=== PATIENT | female | born 1950 | race Caucasian/White ===

== ENCOUNTER → 2020-03-29 | Outpatient (CLI) | payer MEDICARE ==
--- NOTE | 2020-03-29 22:19 | CT ---
EXAMINATION TYPE: CT sinus w con DATE OF EXAM: 03/29/2020 COMPARISON: None. HISTORY: Dyspnea. 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 CT DLP: 514.10 mGycm Automated exposure control for dose reduction was used. CONTRAST: CT scan of the sinuses is performed with IV Contrast, patient injected with 50 mL of Isovue 300. TECHNIQUE: CT scan of the sinuses is performed with IV contrast, axial images are obtained, coronal r eformatted images are also reviewed. FINDINGS: The paranasal sinuses including the frontal, ethmoid, sphenoid, and maxillary sinuses bila terally are well-aerated without abnormal opacification. The ostiomeatal complex is patent bilateral ly on coronal image 16. Visualized portion of mastoid air cells show no abnormal opacification. The globes are intact bilate rally. Visualized brain parenchyma unremarkable. No suspicious enhancement is seen. IMPRESSION: The sinuses are clear and the ostiomeatal complex is patent bilaterally.
--- NOTE | 2020-03-29 22:21 | CT ---
EXAMINATION TYPE: CT chest w con DATE OF EXAM: 03/29/2020 COMPARISON: Chest x-ray 6 days ago HISTORY: Dyspnea. 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 CT DLP: 171.60 mGycm. Automated Exposure Control for Dose Reduction was Utilized. TECHNIQUE: CT scan of the thorax is performed following with IV Contrast, patient injected with 50 m L of Isovue 300. FINDINGS: LUNGS: Mild to moderate biapical pleural/parenchymal scarring. Mild medial left basilar linear scarri ng and/or atelectasis. No suspicious focal consolidation or groundglass opacity. No pleural effusion or pneumothorax is seen bilaterally. Tracheobronchial tree is patent. MEDIASTINUM: There are no greater than 1 cm hilar or mediastinal lymph nodes. No cardiomegaly or pe ricardial effusion is seen. Enlarged right and left pulmonary arteries, CT findings consistent with underlying pulmonary artery hypertension. Thyroid gland is small in size or atrophic. OTHER: Small sized hiatal hernia. Cholecystectomy clips. Underlying scoliosis. Exaggerated thoracic k yphosis. IMPRESSION: Mild Chronic parenchymal changes without acute pulmonary process. Underlying pulmonary ar minda hypertension is present.
== END | disposition home or self-care (01) ==
LOC: RADCTMAIN 15:11
PROVIDERS: ATTEND Internal Medicine Critical Care Medicine
DX: J98.4 Other disorders of lung (principal); I27.21 Secondary pulmonary arterial hypertension; R06.09 Other forms of dyspnea
CPT/HCPCS: 82565; 84520; 71260; 36415; 70487; Q9967

== ENCOUNTER → 2020-05-24 | Outpatient (CLI) | payer MEDICARE ==
[2020-05-25 03:46] LABS: African American GFR (CKD) 65.6 (60.0-200.0); Anion Gap 11.5 mmol/L (4.00-12.00); Calcium 9.8 mg/dL (8.7-10.3); Carbon Dioxide 24.5 mmol/L (21.6-31.8); Non-African American GFR(CKD) 56.6 (60.0-200.0); Potassium 4.5 mmol/L (3.5-5.5)
== END | disposition home or self-care (01) ==
LOC: LABWHC1 12:21
PROVIDERS: ATTEND Internal Medicine Critical Care Medicine
DX: N17.9 Acute kidney failure, unspecified (principal)
CPT/HCPCS: 36415; 80048

== ENCOUNTER → 2020-06-05 | Outpatient (CLI) | payer MEDICARE ==
--- NOTE | 2020-06-06 10:56 | ECHOF ---
Referral Reason:R06.09 dyspnea MEASUREMENTS -------- HEIGHT: 167.6 cm WEIGHT: 68.9 kg BP: RVIDd: 3.5 cm (< 3.3) IVSd: 1.1 cm (0.6 - 1.1) LVIDd: 3.6 cm (3.9 - 5.3) LVPWd: 1.0 cm (0.6 - 1.1) IVSs: 1.5 cm LVIDs: 2.4 cm LVPWs: 1.6 cm LAESV Index (A-L): 26.46 ml/m Ao Diam: 2.9 cm (2.0 - 3.7) AV Cusp: 1.9 cm (1.5 - 2.6) MV EXCURSION: 20.022 mm (> 18.000) MV EF SLOPE: 59 mm/s (70 - 150) EPSS: 0.5 cm MV E Aaron: 0.92 m/s MV DecT: 160 ms MV A Aaron: 1.28 m/s MV E/A Ratio: 0.72 AR PHT: 454 ms RAP: 5.00 mmHg RVSP: 33.54 mmHg FINDINGS -------- Sinus rhythm. This was a technically adequate study. The left ventricular size is normal. There is mild concentric left ventricular hypertrophy. Overa ll left ventricular systolic function is normal with, an EF between 55 - 60 %. The diastolic fillin g pattern is normal for the age of the patient 14.83. The right ventricle is mildly enlarged. Normal LA size by volume 22+/-6 ml/m2. The right atrial size is normal. Interatrial and interventricular septum intact. The aortic valve is trileaflet and appears structurally normal. There is mild aortic regurgitation. There is no evidence of aortic stenosis. Mild mitral regurgitation is present. Mild tricuspid regurgitation present. There is mild pulmonary hypertension. The right ventricular systolic pressure, as measured by Doppler, is 33.54mmHg. There is no pulmonic regurgitation present. The aortic root size is normal. IVC Not well visulized. There is no pericardial effusion. CONCLUSIONS -------- 1. Sinus rhythm. 2. This was a technically adequate study. 3. The left ventricular size is normal. 4. There is mild concentric left ventricular hypertrophy. 5. Overall left ventricular systolic function is normal with, an EF between 55 - 60 %. 6. The diastolic filling pattern is normal for the age of the patient 14.83 7. The right ventricle is mildly enlarged. 8. There is mild aortic regurgitation. 9. Mild mitral regurgitation is present. 10. Mild tricuspid regurgitation present. 11. There is mild pulmonary hypertension. 12. The right ventricular systolic pressure, as measured by Doppler, is 33.54mmHg. MARKER MACHINE ATTENDANT: Radha Chiang RDCS
== END | disposition home or self-care (01) ==
LOC: RADECHMAIN 14:58
PROVIDERS: ATTEND Internal Medicine Critical Care Medicine
DX: I08.3 Combined rheumatic disorders of mitral, aortic and tricuspid valves (principal); I27.20 Pulmonary hypertension, unspecified
CPT/HCPCS: 93306

== ENCOUNTER 2021-02-18 14:27 | Emergency (ER) | payer MEDICARE ==
[2021-02-18 15:24] VITALS: BP 159/87; PULSE 97; RESP 20; TEMP 98.5
--- NOTE | 2021-02-18 15:53 | ED ---
General Adult HPI - General Chief complaint: Recheck/Abnormal Lab/Rx Stated complaint: Covid+/antibodies Time Seen by Provider: 02/18/21 15:25 Source: patient, RN notes reviewed, old records reviewed Mode of arrival: ambulatory Limitations: no limitations - History of Present Illness Initial comments: This is a 71-year-old female presents to the emergency department stating that she was diagnosed with COVID yesterday. Patient states she had her first symptoms on . Patient states that she was recommended to come to the emergency department for a infusion of monoclonal antibodies. Patient states she is somewhat short of breath occasionally. Patient denies any chest pain or palpitations. Patient states she did not get any of the vaccinations. - Related Data Allergies Allergy/AdvReac Type Severity Reaction Status Date / Time bee pollen Allergy Anaphylaxis Verified 02/18/21 15:21 ciprofloxacin [From Cipro] Allergy Dyspnea Verified 02/18/21 15:19 diclofenac [From Arthrotec] Allergy Unknown Verified 02/18/21 15:19 diphenhydramine Allergy Rapid Verified 02/18/21 15:19 [From Benadryl] Heart Rate ezetimibe [From Zetia] Allergy Dyspnea Verified 02/18/21 15:19 Iodinated Contrast Media Allergy Rash/Hives Verified 02/18/21 15:21 levofloxacin [From Levaquin] Allergy Rapid Verified 02/18/21 15:19 Heart Rate misoprostol [From Arthrotec] Allergy Unknown Verified 02/18/21 15:19 naproxen [From Aleve] Allergy Anaphylaxis Verified 02/18/21 15:19 niacin Allergy Anaphylaxis Verified 02/18/21 15:19 prednisone Allergy Rapid Verified 02/18/21 15:19 Heart Rate acetaminophen AdvReac Unknown Verified 02/18/21 15:19 [From Darvocet-N] atorvastatin [From Lipitor] AdvReac Nausea & Verified 02/18/21 15:21 Vomiting & Diarrhea cimetidine [From Tagamet] AdvReac Unknown Verified 02/18/21 15:21 codeine AdvReac Abdominal Verified 02/18/21 15:19 Pain esomeprazole [From Nexium] AdvReac Abdominal Verified 02/18/21 15:21 Pain omeprazole [From Prilosec] AdvReac Unknown Verified 02/18/21 15:21 pramipexole [From Mirapex] AdvReac Diarrhea Verified 02/18/21 15:21 pravastatin AdvReac Nausea & Verified 02/18/21 15:21 Vomiting & Diarrhea propoxyphene AdvReac Unknown Verified 02/18/21 15:19 [From Darvocet-N] simvastatin AdvReac Nausea & Verified 02/18/21 15:21 Vomiting & Diarrhea Review of Systems ROS Statement: Those systems with pertinent positive or pertinent negative responses have been documented in the HPI. ROS Other: All systems not noted in ROS Statement are negative. Past Medical History Past Medical History: Hyperlipidemia History of Any Multi-Drug Resistant Organisms: None Reported Past Surgical History: Appendectomy, Cholecystectomy, Hysterectomy, Tonsillectomy Past Psychological History: No Psychological Hx Reported Smoking Status: Never smoker Past Alcohol Use History: Occasional Past Drug Use History: None Reported General Exam - General Exam Comments Initial Comments: GENERAL: Patient is well-developed and well-nourished. Patient is nontoxic and well- hydrated and is in mild distress. ENT: Neck is soft and supple. No significant lymphadenopathy is noted. Oropharynx is clear. Moist mucous membranes. Neck has full range of motion without eliciting any pain. EYES: The sclera were anicteric and conjunctiva were pink and moist. Extraocular movements were intact and pupils were equal round and reactive to light. Eyelids were unremarkable. PULMONARY: Unlabored respirations. Good breath sounds bilaterally. No audible rales rhonchi or wheezing was noted. CARDIOVASCULAR: There is a regular rate and rhythm without any murmurs gallops or rubs. ABDOMEN: Soft and nontender with normal bowel sounds. SKIN: Skin is clear with no lesions or rashes and otherwise unremarkable. NEUROLOGIC: Patient is alert and oriented x3. Cranial nerves II through XII are grossly intact. Motor and sensory are also intact. Normal speech, volume and content. Symmetrical smile. MUSCULOSKELETAL: Normal extremities with adequate strength and full range of motion. LYMPHATICS: No significant lymphadenopathy is noted PSYCHIATRIC: Normal psychiatric evaluation. Limitations: no limitations Course Vital Signs 02/18/21 15:22 Temperature 98.5 F Pulse Rate 97 Respiratory 20 Rate Blood Pressure 159/87 O2 Sat by Pulse 97 Oximetry Medical Decision Making - Medical Decision Making Patient received monoclonal antibodies. Chest x-ray shows no acute abnormality. Disposition Clinical Impression: COVID Disposition: HOME SELF-CARE Condition: Good Instructions (If sedation given, give patient instructions): Coronavirus Disease 2019 (COVID-19) Is patient prescribed a controlled substance at d/c from ED?: No Referrals: Daria Calle MD [Primary Care Provider] - 1-2 days Time of Disposition: 17:04
[2021-02-18] MEDS ORDERED: SODIUM CHLORIDE 0.9% 50 ML IVPB ONE (16:00)
[2021-02-18] MEDS ORDERED: SOTROVIMAB (EUA) 500 MG in SODIUM CHLORIDE 0.9% 100 ML IVPB ONE (16:15)
--- NOTE | 2021-02-18 16:22 | XR ---
EXAMINATION TYPE: XR chest 1V DATE OF EXAM: 02/18/2021 COMPARISON: Chest CT March 29, 2020 HISTORY: Shortness of breath. Cough and congestion. TECHNIQUE: Single frontal view of the chest is obtained. FINDINGS: Background chronic emphysematous and pulmonary fibrotic changes bilaterally. There is no lazaro spicious new focal air space opacity, pleural effusion, or pneumothorax seen. The cardiac silhouette size is stable and within normal limits. Underlying scoliosis is redemonstrated. Cholecystectomy cli ps are again seen. IMPRESSION: Chronic changes without acute pulmonary process.
== END 2021-02-18 17:57 | disposition home or self-care (01) ==
LOC: EC 14:27
DX: U07.1 COVID-19 (principal)
CPT/HCPCS: 71045; 99284; Q0247

== ENCOUNTER 2021-10-14 14:22 | Observation (INO) | payer MEDICARE ==
[2021-10-14] MEDS ORDERED: SODIUM CHLORIDE 0.9% 500 ML 500 ML IV STA (14:41)
[2021-10-14] MEDS ORDERED: Alteplase PER PHARMACY Stroke 1 EACH MISC MISCELLANE PRN (14:41)
[2021-10-14] MEDS ORDERED: ALTEPLASE IV STA (14:44)
[2021-10-14] MEDS ORDERED: ALTEPLASE BOLUS FOR STROKE 6 MG in EMPTY SYRINGE 1 SYR IV STA (14:44)
--- NOTE | 2021-10-14 14:45 | ED ---
General Adult HPI - General Chief complaint: Neuro Symptoms/Deficit Stated complaint: posible stroke Time Seen by Provider: 10/14/21 14:35 Source: patient, RN notes reviewed, old records reviewed Mode of arrival: ambulatory Limitations: no limitations - History of Present Illness Initial comments: This a 71-year-old female presents emergency Department complaining of right- sided facial droop and inability to close her eye completely on the right side. Patient states the last time she notices something 100% normal was at 11:30 when she was putting her eye makeup on. Patient states about 1:00 she started to eat and noticed that the fluid was kind of falling out of the right side of her mouth and at that point in time she went to look at her face and noticed the facial droop so she came to the emergency department. Patient states she has a little bit of a headache behind the right eye. Patient denies any extremity weakness or numbness. Patient states yesterday for a few minutes she had some tingling in both her hands but that was short lived. Patient denies any numbness or tingling sensation today. Patient denies any weakness of any of her extremities. Patient denies any slurred speech agrees patient does not have any slurred speech. Patient denies any fever chills or cough. Patient denies any chest pain difficulty breathing or palpitations. Patient states recently she's had some issues with her sinuses. - Related Data Home Medications Medication Instructions Recorded Confirmed Albuterol Sulfate [Ventolin HFA] 1 - 2 puff INHALATION RT-Q6H PRN 02/18/21 02/18/21 Ascorbic Acid [Vitamin C] 500 mg PO DAILY 02/18/21 02/18/21 Celecoxib [CeleBREX] 100 mg PO BID 02/18/21 02/18/21 Cholecalciferol (Vitamin D3) 125 mcg PO DAILY 02/18/21 02/18/21 [Vitamin D3 (125 MCG = 5,000 IU)] Famotidine [Pepcid] 20 mg PO DAILY PRN 02/18/21 02/18/21 Levothyroxine Sodium [Synthroid] 100 mcg PO DAILY 02/18/21 02/18/21 Montelukast [Singulair] 10 mg PO HS 02/18/21 02/18/21 Triamcinolone Acetonide 1 spray EA NOSTRIL DAILY 02/18/21 02/18/21 [Triamcinolone Acetonide 0.055MG Nasal] Vitamin B Complex 1 tab PO DAILY 02/18/21 02/18/21 Allergies Allergy/AdvReac Type Severity Reaction Status Date / Time bee pollen Allergy Anaphylaxis Verified 10/14/21 14:29 ciprofloxacin [From Cipro] Allergy Dyspnea Verified 10/14/21 14:29 diclofenac [From Arthrotec] Allergy Unknown Verified 10/14/21 14:29 diphenhydramine Allergy Rapid Verified 10/14/21 14:29 [From Benadryl] Heart Rate ezetimibe [From Zetia] Allergy Dyspnea Verified 10/14/21 14:29 Iodinated Contrast Media Allergy Rash/Hives Verified 10/14/21 14:29 levofloxacin [From Levaquin] Allergy Rapid Verified 10/14/21 14:29 Heart Rate misoprostol [From Arthrotec] Allergy Unknown Verified 10/14/21 14:29 naproxen [From Aleve] Allergy Anaphylaxis Verified 10/14/21 14:29 niacin Allergy Anaphylaxis Verified 10/14/21 14:29 prednisone Allergy Rapid Verified 10/14/21 14:29 Heart Rate acetaminophen AdvReac Unknown Verified 10/14/21 14:29 [From Darvocet-N] atorvastatin [From Lipitor] AdvReac Nausea & Verified 10/14/21 14:29 Vomiting & Diarrhea cimetidine [From Tagamet] AdvReac Unknown Verified 10/14/21 14:29 codeine AdvReac Abdominal Verified 10/14/21 14:29 Pain esomeprazole [From Nexium] AdvReac Abdominal Verified 10/14/21 14:29 Pain omeprazole [From Prilosec] AdvReac Unknown Verified 10/14/21 14:29 pramipexole [From Mirapex] AdvReac Diarrhea Verified 10/14/21 14:29 pravastatin AdvReac Nausea & Verified 10/14/21 14:29 Vomiting & Diarrhea propoxyphene AdvReac Unknown Verified 10/14/21 14:29 [From Darvocet-N] simvastatin AdvReac Nausea & Verified 10/14/21 14:29 Vomiting & Diarrhea Review of Systems ROS Statement: Those systems with pertinent positive or pertinent negative responses have been documented in the HPI. ROS Other: All systems not noted in ROS Statement are negative. Past Medical History Past Medical History: CVA/TIA, Hyperlipidemia History of Any Multi-Drug Resistant Organisms: None Reported Past Surgical History: Appendectomy, Cholecystectomy, Hysterectomy, Tonsillect armand Past Psychological History: No Psychological Hx Reported Smoking Status: Never smoker Past Alcohol Use History: Occasional Past Drug Use History: None Reported General Exam - General Exam Comments Initial Comments: GENERAL: Patient is well-developed and well-nourished. Patient is nontoxic and well- hydrated and is in no acute distress. ENT: Neck is soft and supple. No significant lymphadenopathy is noted. Oropharynx is clear. Moist mucous membranes. Neck has full range of motion without eliciting any pain. EYES: The sclera were anicteric and conjunctiva were pink and moist. Extraocular movements were intact and pupils were equal round and reactive to light. Eyelids were unremarkable. PULMONARY: Unlabored respirations. Good breath sounds bilaterally. No audible rales rhonchi or wheezing was noted. CARDIOVASCULAR: There is a regular rate and rhythm without any murmurs gallops or rubs. ABDOMEN: Soft and nontender with normal bowel sounds. No palpable organomegaly was noted. There is no palpable pulsatile mass. SKIN: Skin is clear with no lesions or rashes and otherwise unremarkable. NEUROLOGIC: Patient is alert and oriented x3. Patient has facial droop on the right side of her face and has weakness with closing her eyelid on the right side. It appears at this point in time the forehead does seem to move symmetrically with the opposite side. Motor and sensory are also intact. Normal speech, volume and content. Symmetrical smile. Cerebellar exam grossly intact. Sugar MUSCULOSKELETAL: Normal extremities with adequate strength and full range of motion. LYMPHATICS: No significant lymphadenopathy is noted PSYCHIATRIC: Normal psychiatric evaluation. Limitations: no limitations Course Vital Signs 10/14/21 10/14/21 10/14/21 14:23 14:40 14:55 Temperature 97.3 F L 98.1 F 98.0 F Pulse Rate 89 83 81 Respiratory 18 18 20 Rate Blood Pressure 179/73 102/67 103/76 O2 Sat by Pulse 99 99 99 Oximetry 10/14/21 10/14/21 10/14/21 15:10 15:25 15:40 Temperature 97.9 F 98.2 F 98.1 F Pulse Rate 76 80 78 Respiratory 18 16 18 Rate Blood Pressure 166/78 176/71 173/89 O2 Sat by Pulse 100 99 100 Oximetry 10/14/21 15:55 Temperature 98.2 F Pulse Rate 81 Respiratory 18 Rate Blood Pressure 173/75 O2 Sat by Pulse 100 Oximetry Medical Decision Making - Medical Decision Making EKG shows sinus rhythm at 85 bpm AR interval 231 to us is 90 QT interval 362 QTC is 45. Patient's EKG shows no ST segment elevation or depression. I spoke with Dr. block and he agreed no TPA was indicated. Patient could not receive IV contrast until she received Solu-Medrol and Pepcid she stated she had issues with CT of the brain shows no acute abnormality. CTA shows a carotid stenosis of 50% otherwise a normal CTA. I spoke with Dr. Barth agreed to admit the patient admitted the patient remaining orders. I spoke with Dr. Garcia that he agreed to see the patient as a consult. 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 - Lab Data Result diagrams: 10/14/21 14:53 10/14/21 14:53 Lab Results 10/14/21 10/14/21 10/14/21 Range/Units 14:47 14:53 14:53 WBC 7.5 (3.8-10.6) k/uL RBC 4.90 (3.80-5.40) m/uL Hgb 15.1 (11.4-16.0) gm/dL Hct 44.5 (34.0-46.0) % MCV 90.9 (80.0-100.0) fL MCH 30.8 (25.0-35.0) pg MCHC 33.9 (31.0-37.0) g/dL RDW 13.3 (11.5-15.5) % Plt Count 315 (150-450) k/uL MPV 8.0 Neutrophils % 64 % Lymphocytes % 24 % Monocytes % 7 % Eosinophils % 2 % Basophils % 1 % Neutrophils # 4.8 (1.3-7.7) k/uL Lymphocytes # 1.8 (1.0-4.8) k/uL Monocytes # 0.5 (0-1.0) k/uL Eosinophils # 0.1 (0-0.7) k/uL Basophils # 0.1 (0-0.2) k/uL PT 10.4 (9.0-12.0) sec INR 0.9 (<1.2) APTT 24.3 (22.0-30.0) sec Sodium (137-145) mmol/L Potassium (3.5-5.1) mmol/L Chloride (98-107) mmol/L Carbon Dioxide (22-30) mmol/L Anion Gap mmol/L BUN (7-17) mg/dL Creatinine (0.52-1.04) mg/dL Est GFR (CKD-EPI)AfAm (>60 ml/min/1.73 sqM) Est GFR (CKD-EPI)NonAf (>60 ml/min/1.73 sqM) Glucose (74-99) mg/dL POC Glucose (mg/dL) 100 (70-110) mg/dL POC Glu Manager Brand FERNANDO David Escalante Calcium (8.4-10.2) mg/dL Total Bilirubin (0.2-1.3) mg/dL AST (14-36) U/L ALT (4-34) U/L Alkaline Phosphatase (38-126) U/L Troponin I (0.000-0.034) ng/mL Total Protein (6.3-8.2) g/dL Albumin (3.5-5.0) g/dL 10/14/21 10/14/21 Range/Units 14:53 14:53 WBC (3.8-10.6) k/uL RBC (3.80-5.40) m/uL Hgb (11.4-16.0) gm/dL Hct (34.0-46.0) % MCV (80.0-100.0) fL MCH (25.0-35.0) pg MCHC (31.0-37.0) g/dL RDW (11.5-15.5) % Plt Count (150-450) k/uL MPV Neutrophils % % Lymphocytes % % Monocytes % % Eosinophils % % Basophils % % Neutrophils # (1.3-7.7) k/uL Lymphocytes # (1.0-4.8) k/uL Monocytes # (0-1.0) k/uL Eosinophils # (0-0.7) k/uL Basophils # (0-0.2) k/uL PT (9.0-12.0) sec INR (<1.2) APTT (22.0-30.0) sec Sodium 139 (137-145) mmol/L Potassium 4.0 (3.5-5.1) mmol/L Chloride 103 (98-107) mmol/L Carbon Dioxide 25 (22-30) mmol/L Anion Gap 11 mmol/L BUN 22 H (7-17) mg/dL Creatinine 1.03 (0.52-1.04) mg/dL Est GFR (CKD-EPI)AfAm 63 (>60 ml/min/1.73 sqM) Est GFR (CKD-EPI)NonAf 55 (>60 ml/min/1.73 sqM) Glucose 102 H (74-99) mg/dL POC Glucose (mg/dL) (70-110) mg/dL POC Glu Manager Brand ID Calcium 9.8 (8.4-10.2) mg/dL Total Bilirubin 0.5 (0.2-1.3) mg/dL AST 39 H (14-36) U/L ALT 28 (4-34) U/L Alkaline Phosphatase 86 (38-126) U/L Troponin I <0.012 (0.000-0.034) ng/mL Total Protein 8.4 H (6.3-8.2) g/dL Albumin 4.7 (3.5-5.0) g/dL Disposition Clinical Impression: Cerebrovascular accident (CVA), Sepulveda's palsy Disposition: ADMITTED IP TO THIS HOSP Referrals: Daria Calle MD [Primary Care Provider] - 1-2 days Time of Disposition: 16:37
[2021-10-14] MEDS ORDERED: diphenhydrAMINE 50 MG/ML 1 ML VIAL IVP STA (14:49)
[2021-10-14] MEDS ORDERED: methylPREDNISolone SOD SUCCI 125 MG/2 ML VIAL IV STA (14:49)
[2021-10-14] MEDS ORDERED: FAMOTIDINE 20 MG/2 ML VIAL IV STA (14:49)
[2021-10-14 14:58] LABS: Glucose,Whole Blood 100 mg/dL (70-110)
[2021-10-14 15:05] LABS: Basophils # (A) 0.1 k/uL (0-0.2); Basophils % (A) 1 %; Eosinophils # (A) 0.1 k/uL (0-0.7); Eosinophils % (A) 2 %; HCT 44.5 % (34.0-46.0); HGB 15.1 gm/dL (11.4-16.0); Lymphocytes # (A) 1.8 k/uL (1.0-4.8); Lymphocytes % (A) 24 %; MCH 30.8 pg (25.0-35.0); MCHC 33.9 g/dL (31.0-37.0); MCV 90.9 fL (80.0-100.0); Monocytes # (A) 0.5 k/uL (0-1.0); Monocytes % (A) 7 %; Neutrophils # (A) 4.8 k/uL (1.3-7.7); Neutrophils % (A) 64 %; Platelet Count 315 k/uL (150-450); RDW 13.3 % (11.5-15.5); WBC 7.5 k/uL (3.8-10.6)
--- NOTE | 2021-10-14 15:11 | CT ---
EXAMINATION TYPE: CT brain wo con for TPA DATE OF EXAM: 10/14/2021 HISTORY: Neuro deficits, LT side CT DLP: 1146.6 mGycm. Automated Exposure Control for Dose Reduction was Utilized. TECHNIQUE: CT scan of the head is performed without contrast. COMPARISON: None. FINDINGS: There is no acute intracranial hemorrhage or midline shift identified. There is mild diff use ventricular and sulcal prominence consistent with diffuse age-related cerebral atrophy. Vargas-whit e matter differentiation is maintained. The globes are intact and the visualized sinuses are clear. IMPRESSION: No acute intracranial hemorrhage or midline shift.
[2021-10-14 15:14] LABS: INR 0.9 (<1.2); Partial Thromboplastin Time 24.3 sec (22.0-30.0); Prothrombin Time 10.4 sec (9.0-12.0)
[2021-10-14 15:23] LABS: Albumin 4.7 g/dL (3.5-5.0); Calcium 9.8 mg/dL (8.4-10.2); Total Bilirubin 0.5 mg/dL (0.2-1.3); Total Protein 8.4 g/dL (6.3-8.2)
[2021-10-14] MEDS ORDERED: SODIUM CHLORIDE 0.9% 50 ML MINI-BAG IV ONE (15:44)
--- NOTE | 2021-10-14 15:46 | CT ---
EXAMINATION TYPE: CT angio head neck DATE OF EXAM: 10/14/2021 HISTORY: Rt side facial droop. Acute onset neuro deficit. COMPARISON: None. CT DLP: 410.8 mGycm. Automated Exposure Control for Dose Reduction was Utilized. TECHNIQUE: CTA scan of the head and neck are performed with IV Contrast, patient injected with 65 mL of Isovue 370, axial images are obtained, coronal and sagittal reformatted images are reviewed. 3D r econstructed images are created on an independent workstation and reviewed. FINDINGS: Carotid/Vascular Structures: Satisfactory enhancement of the central pulmonary arteries . Focal moder ate to severe eccentric noncalcified plaque left common carotid artery shortly after its origin causi ng significant narrowing greater than 50% with luminal diameter narrowed to 3.5 mm versus 7.3 mm just superior to this. Normal origin right common carotid artery from right brachiocephalic artery. No si gnificant plaque or stenosis remainder of common carotid arteries bilaterally. Mild to moderate perip heral calcified plaque right carotid bulb extending into proximal internal carotid artery without sig nificant stenosis. No significant plaque left carotid bulb. Patent external carotid arteries bilatera lly without significant plaque or stenosis. No significant plaque or stenosis in the internal carotid arteries bilaterally. There is a patent small caliber anterior communicating artery. There is small caliber but patent left A1 segment. No aneurysm in the anterior circulation. No significant focal wolf nosis. There are codominant vertebral arteries filling the basilar artery. There is patent right posterior t o indicating artery. There is hypoplastic left posterior beginning artery. There is no significant fo nereida stenosis or aneurysm in the posterior circulation. Other: [id number]-[id number] biapical pleural/parenchymal scarring is seen. IMPRESSION: 1. Moderate to severe eccentric noncalcified plaque causes stenosis just over 50% just after origin o f the left common carotid artery. No significant stenosis in the remainder of the common or internal carotid arteries bilaterally. 2. No significant stenosis or aneurysm at the level of the [place]. NASCET criteria was used in interpretation of this exam?
[2021-10-14] MEDS ORDERED: ASPIRIN 325 MG TAB PO STA (16:45)
[2021-10-14] MEDS: methylPREDNISolone SOD SUCCI 125 MG/2 ML VIAL IV SCH ×2 (17:43→22:49)
[2021-10-14] MEDS ORDERED: ALBUTEROL NEBULIZED 2.5 MG/3 ML INHALATION PRN (18:36)
[2021-10-14] MEDS ORDERED: NALOXONE 0.4 MG/ML 1 ML VIAL IV PRN (18:38)
[2021-10-14] MEDS ORDERED: LACTULOSE 20 GM/30 ML CUP PO PRN (18:38)
[2021-10-14] MEDS ORDERED: LORazepam 0.5 MG TAB PO PRN (18:38)
[2021-10-14] MEDS ORDERED: CALCIUM CARBONATE 500 MG CHEWABLE PO PRN (18:38)
[2021-10-14] MEDS ORDERED: ONDANSETRON 4 MG/2 ML VIAL IVP PRN (18:38)
[2021-10-14] MEDS ORDERED: MELATONIN 3 MG TABLET PO PRN (18:38)
--- NOTE | 2021-10-14 18:52 | XR ---
EXAMINATION TYPE: XR chest 1V portable DATE OF EXAM: 10/14/2021 COMPARISON: 02/18/2021 HISTORY: Chest pain TECHNIQUE: Single view FINDINGS: There is no heart failure nor confluent pneumonic infiltrate. There is mild pulmonary hyper inflation. There are chest leads. Costophrenic angles are clear. IMPRESSION: No active cardiopulmonary disease. Normal heart. No change.
[2021-10-14 20:41] LABS: Glucose,Whole Blood 179 mg/dL (70-110)
[2021-10-14] MEDS: valACYclovir HCL 1,000 MG TABLET PO SCH (20:45)
[2021-10-14] MEDS: FLUTICASONE 50MCG/SPRAY NASAL 16GM EA NOSTRIL SCH (20:50)
[2021-10-14] MEDS: NON FORMULARY DRUG (Celecoxib 100 MG Cap) PO SCH (20:50)
[2021-10-14] MEDS ORDERED: MONTELUKAST 10 MG TAB PO SCH (21:00)
[2021-10-15 04:00] VITALS: RESP 17
[2021-10-15 05:52] LABS: Glucose,Whole Blood 149 mg/dL (70-110)
[2021-10-15] MEDS ORDERED: LEVOTHYROXINE 100 MCG TAB PO SCH (06:30)
[2021-10-15] MEDS: methylPREDNISolone SOD SUCCI 125 MG/2 ML VIAL IV SCH ×2 (06:36→12:59)
[2021-10-15] MEDS ORDERED: PYRIDOXINE 50 MG TAB PO SCH (09:00)
[2021-10-15] MEDS ORDERED: ASPIRIN 325 MG TAB PO SCH (09:00)
[2021-10-15] MEDS ORDERED: CYANOCOBALAMIN 500 MCG TAB PO SCH (09:00)
[2021-10-15] MEDS ORDERED: HEPARIN SODIUM,PORCINE/PF 5,000 UNIT/0.5 ML SYRINGE SQ SCH (09:00)
[2021-10-15] MEDS ORDERED: CHOLECALCIFEROL 125 MCG (5000 IU) TABLET PO SCH (09:00)
--- NOTE | 2021-10-15 09:07 | US ---
EXAMINATION TYPE: US carotid duplex BILAT DATE OF EXAM: 10/15/2021 COMPARISON: CTA 2021 CLINICAL HISTORY: carotid stenosis. TECHNIQUE: Carotid duplex ultrasound examination. Indirect Doppler criteria was utilized. Exam done portable FINDINGS: EXAM MEASUREMENTS: RIGHT: Peak Systolic Velocity (PSV) cm/sec ----- Right CCA: 72.1 ----- Right ICA: 81.1 ----- Right ECA: 108.8 ICA/CCA ratio: 1.1 RIGHT: End Diastole cm/sec ----- Right CCA: 11.7 ----- Right ICA: 17.7 ----- Right ECA: 7.0 LEFT: Peak Systolic Velocity (PSV) cm/sec ----- Left CCA: 79.8 ----- Left ICA: 84.5 ----- Left ECA: 141.8 ICA/CCA ratio: 1.1 LEFT: End Diastole cm/sec ----- Left CCA: 9.5 ----- Left ICA: 22.1 ----- Left ECA: 7.5 VERTEBRALS (direction of flow): Right Vertebral: Antegrade Left Vertebral: Antegrade Rhythm: Normal No significant stenosis IMPRESSION: No significant flow-limiting stenosis internal carotid arteries. Some increased velocity is noted in the left external carotid artery. Criteria for Assigning % of Stenosis / Diameter reduction (Estimation based on the indirect measurements of the internal carotid artery velocities (ICA PSV). 1. Normal (no stenosis)=ICA PSV < 125 cm/s: ratio < 2.0: ICA EDV<40 cm/s. 2. Less than 50% stenosis=ICA PSV < 125 cm/s: ratio < 2.0: ICA EDV<40 cm/s. 3. 50 to 69% stenosis=ICA PSV of 125 to 230 cm/s: ration 2.0 ? 4.0: ICA EDV 40-100 cm/s. 4. Greater than 70% stenosis to near occlusion= ICA PSV > 230 cm/s: ratio > 4.0: ICA EDV > 100 cm/s. 5. Near occlusion= ICA PSV velocities may be low or undetectable: variable ratio and ICA EDV. 6. Total occlusion=unable to detect flow.
[2021-10-15] MEDS: NON FORMULARY DRUG (Celecoxib 100 MG Cap) PO SCH (09:32)
[2021-10-15] MEDS: FLUTICASONE 50MCG/SPRAY NASAL 16GM EA NOSTRIL SCH (09:37)
[2021-10-15] MEDS: valACYclovir HCL 1,000 MG TABLET PO SCH ×2 (09:37→15:43)
--- NOTE | 2021-10-15 10:34 | P.CNNES ---
History of Present Illness Consult date: 10/15/21 Requesting physician: Gabe Bai Reason for Consult: cva vs Sepulveda's palsy History of Present Illness: A 71-year-old woman with medical history of hyperlipidemia, TIA who presented emergency department on 10/14/2021 for right facial droop and inability to close her eye. She noticed her symptoms onset yesterday around 11:30am. But around 1 PM yesterday she noticed that while eating her tongue was getting in the way and was biting her right side of mouth. Then noticed while eating thing coming out from the right side. Later she looked at her self and noticed right facial droop since could not smile on right side and was concerned about a stroke. She does notice that she's having pain behind the right eye. She denies of any focal weakness. He denies of any numbness or tingling. She denies of any slurr ing the speech appear denies of any fever. Denies of any headache. She is not on any antiplateletes. She had reactive to statins in past (different medications) and stated feel sick and can not tolerate them. Some other workup during this hospital visit consisted of: CT of the head is reported as no acute intracranial hemorrhage or midline shift. I personally reviewed the CT of the head and we were the report CT angiography of the head and neck was reported as moderate to severe concentric noncalcified plaque causing stenosis just over 50% just after the origin of left common carotid artery. No significant stenosis in the remainder of the common or internal carotid artery bilaterally. No significant stenosis or aneurysm at the level resighini of [place]. CBC with differential is unremarkable Stroke code was activated and per the ED team patient had NIH stroke scale of a 2 no IV TPA isn't indicated because the risk outweighed the benefit and was felt likely was a Sepulveda's palsy. I spoke with the ED physician regarding the case and he felt it seems that the patient has pulse palsy but he could not rule out stroke. I notified him to start the patient on steroids and the antiviral for now. Review of Systems Review of system: The 12 point system was reviewed and apparent positive and negative per HPI. Past Medical History Past Medical History: CVA/TIA, Hyperlipidemia History of Any Multi-Drug Resistant Organisms: None Reported Past Surgical History: Appendectomy, Cholecystectomy, Hysterectomy, Tonsillectomy Past Anesthesia/Blood Transfusion Reactions: No Reported Reaction Past Psychological History: No Psychological Hx Reported Smoking Status: Never smoker Past Alcohol Use History: Occasional Past Drug Use History: None Reported Medications and Allergies Home Medications Medication Instructions Recorded Confirmed Type Albuterol Sulfate [Ventolin HFA] 2 puff INHALATION RT-Q6H PRN 02/18/21 10/14/21 History Celecoxib [CeleBREX] 100 mg PO BID 02/18/21 10/14/21 History Cholecalciferol (Vitamin D3) 125 mcg PO DAILY 02/18/21 10/14/21 History [Vitamin D3 (125 MCG = 5,000 IU)] Montelukast [Singulair] 10 mg PO HS 02/18/21 10/14/21 History Cyanocobalamin [Vitamin B-12] 500 mcg PO DAILY 10/14/21 10/14/21 History Pyridoxine HCl (Vitamin B6) 100 mg PO DAILY 10/14/21 10/14/21 History [Vitamin B-6] Triamcinolone Acetonide [Nasacort] 1 spray EA NOSTRIL BID 10/14/21 10/14/21 History Aspirin 81 mg PO DAILY #30 tab 10/15/21 Rx Levothyroxine Sodium [Synthroid] 37.5 mcg PO DAILY #30 tab 10/15/21 Rx predniSONE 10 mg PO DAILY #30 tab 10/15/21 Rx valACYclovir HCL [Valtrex] 1,000 mg PO TID #21 tab 10/15/21 Rx Allergies Allergy/AdvReac Type Severity Reaction Status Date / Time bee pollen Allergy Anaphylaxis Verified 10/14/21 17:35 ciprofloxacin [From Cipro] Allergy Dyspnea Verified 10/14/21 17:35 diclofenac [From Arthrotec] Allergy Unknown Verified 10/14/21 17:35 diphenhydramine Allergy Rapid Verified 10/14/21 17:35 [From Benadryl] Heart Rate ezetimibe [From Zetia] Allergy Dyspnea Verified 10/14/21 17:35 Iodinated Contrast Media Allergy Rash/Hives Verified 10/14/21 17:35 levofloxacin [From Levaquin] Allergy Rapid Verified 10/14/21 17:35 Heart Rate naproxen [From Aleve] Allergy Anaphylaxis Verified 10/14/21 17:35 niacin Allergy Anaphylaxis Verified 10/14/21 17:35 prednisone Allergy Rapid Verified 10/14/21 17:35 Heart Rate acetaminophen AdvReac Unknown Verified 10/14/21 17:35 [From Darvocet-N] atorvastatin [From Lipitor] AdvReac Nausea & Verified 10/14/21 17:35 Vomiting & Diarrhea cimetidine [From Tagamet] AdvReac Abdominal Verified 10/14/21 17:35 Pain codeine AdvReac Abdominal Verified 10/14/21 17:35 Pain esomeprazole [From Nexium] AdvReac Abdominal Verified 10/14/21 17:35 Pain misoprostol [From Arthrotec] AdvReac numbness, Verified 10/14/21 17:35 weakness omeprazole [From Prilosec] AdvReac felt Verified 10/14/21 17:35 strange, confusion pramipexole [From Mirapex] AdvReac Diarrhea, Verified 10/14/21 17:35 shakiness pravastatin AdvReac weakness, Verified 10/14/21 17:35 abdominal pain, numbness propoxyphene AdvReac Unknown Verified 10/14/21 17:35 [From Darvocet-N] simvastatin AdvReac Nausea & Verified 10/14/21 17:35 Vomiting & Diarrhea Physical Examination - Vital Signs Vital Signs: Vital Signs Temp Pulse Pulse Resp BP BP Pulse Ox 10/15/21 03:58 97.4 F L 82 17 146/70 94 L 10/15/21 02:00 18 10/14/21 23:27 98.0 F 90 18 178/84 96 10/14/21 20:00 98.6 F 80 17 170/74 97 10/14/21 18:20 98.4 F 94 16 189/84 97 10/14/21 17:40 86 18 190/82 97 10/14/21 17:12 76 18 98 10/14/21 17:00 79 18 154/80 96 10/14/21 15:55 98.2 F 81 18 173/75 100 10/14/21 15:40 98.1 F 78 18 173/89 100 10/14/21 15:25 98.2 F 80 16 176/71 99 10/14/21 15:10 97.9 F 76 18 166/78 100 10/14/21 14:55 98.0 F 81 20 103/76 99 10/14/21 14:40 98.1 F 83 18 102/67 99 10/14/21 14:23 97.3 F L 89 18 179/73 99 Intake and Output 10/14/21 10/15/21 10/15/21 22:59 06:59 14:59 Other: Voiding Method Toilet Toilet # Voids 1 Weight 69.853 kg GENERAL: The patient is lying in bed and is not in acute distress. CHEST: The heart rate is regular rate rhythm. No murmurs to auscultation. LUNG: Clear to auscultation bilaterally no wheezing noted throughout. Not labored breathing. ABDOMEN/GI: Bowel sounds present in all 4 quadrants. No tenderness to palpation throughout. NEUROLOGICAL: Higher mental function: The patient is awake, alert, oriented to self, place and time. Patient is following commands. No aphasia and no neglect. Cranial nerves: The pupils are round, equal and reactive to light and accommodation. Visual root are full to confrontation throughout. Extraocular movement is intact no nystagmus is noted. Facial sensation is normal to touch throughout. The facial strength is right peripheral weakness. Hearing is normal bilaterally to hand rub. Tongue is midline and moved [id number] without any difficulty. No dysarthria is noted. Shoulder shrug is normal bilaterally. Motor: Gait is normal. The strength is 5 over 5 throughout. Normal tone and bulk. Cerebellum: Normal finger to nose heel to smiley bilaterally. Sensation: Sensation is normal to touch throughout. Reflexes (right/left): 2+ throughout. Plantars are mute bilaterally. Results - Laboratory Findings CBC and BMP: 10/14/21 14:53 10/15/21 12:09 Abnormal Lab Findings: Abnormal Labs 10/14/21 10/14/21 10/15/21 14:53 20:36 05:45 BUN 22 H Glucose 102 H POC Glucose (mg/dL) 179 H 149 H AST 39 H Total Protein 8.4 H Assessment and Plan Assessment: Right peripheral facial weakness seems like Sepulveda's palsy. Possibly due to viral induced. Rule out stroke. Plan: I ordered MRI of the brain with and without on 10/14/2021 and pending. Patient refused MRI since stated cannot tolerate it event with sedatives. Therefore will discontinue the order. Patient was started on aspirin 325 daily by the ED team answer be resumed. She does not tolerate statins in past. Currently the patient is on Solu-Medrol 60 mg IV every 6 hours as well as bowel acyclovir thousand milligrams 1 tablet 3 times a day for concern of Sepulveda's palsy. For discharge: Recommend Prednisone 70mg/day for 5 days followed by 10mg less each day until off. Also Valcyclovir 1gm tid for additional 6 days. Recommend eye patch and clear eye drop to avoid corneal ulceration. Lipid panel is ordered and is pending. Ordered carotid duplex, Lymes disease, TSH, and HbA1c. PT OT and CERTIFIED LEGAL INVESTIGATOR are consulted Continue neuro checks I ordered TSH, free T4, hemoglobin A1c. We'll defer glucose management to the primary team For DVT prophylaxis I started the patient on subcu heparin 5000 units every 12 hours The plan is discussed with patient and her nurse. Thank you for consultation. Raj Mata M.D. Neuro-hospitalist Time with Patient: Greater than 30
[2021-10-15 11:48] LABS: Glucose,Whole Blood 125 mg/dL (70-110)
[2021-10-15 12:37] LABS: Calcium 9.6 mg/dL (8.4-10.2); Potassium 4.3 mmol/L (3.5-5.1)
--- NOTE | 2021-10-15 13:42 | US ---
EXAMINATION TYPE: US kidneys/renal and bladder DATE OF EXAM: 10/15/2021 COMPARISON: NONE CLINICAL HISTORY: assess for ckd. Exam done portable EXAM MEASUREMENTS: Right Kidney: 9.8 x 3.1 x 3.4 cm Left Kidney: 10.6 x 3.7 x 4.4 cm Right Kidney: No hydronephrosis or masses seen Left Kidney: No hydronephrosis or masses seen Bladder: wnl Bilateral Jets seen: no IMPRESSION: Unremarkable renal ultrasound.
[2021-10-15 14:03] LABS: T4, Free (Free Thyroxine) 2.39 ng/dL (0.78-2.19)
[2021-10-15 14:52] LABS: LDL Cholesterol,Calculated 198.2 mg/dL (0.0-131.0)
--- NOTE | 2021-10-15 15:49 | P.HPIM ---
History of Present Illness H&P Date: 10/15/21 Chief Complaint: Facial weakness This is a pleasant 71-year-old patient who follows with Dr. Daria Calle. Chronic stable medical conditions include ALLERGIES, hypothyroid, osteoarthritis, asthma,. Currently was being treated for acute sinusitis. Was on doxycycline. Yesterday all of a sudden patient notice numbness on the right side of the face. Also consider better found in the mouth was being pulled to the left. Was unable to close her right eye. No fever no chills. No change in vision. No change in taste. No trouble swallowing. In the ER and there was concern about a central cause as opposed to Sepulveda's palsy. Hence patient is admitted with neurology consultation. Patient's at the bedside. No change in symptoms. MRI was ordered by neurology but patient did not want it because cannot tolerated in spite of sedatives Review of systems: GEN.: None EYES: As above HEENT: None NECK: None RESPIRATORY: None CARDIOVASCULAR: None GASTROINTESTINAL: Reflux GENITOURINARY: Urinary incontinence MUSCULOSKELETAL: Joint pains LYMPHATICS: None HEMATOLOGICAL: None PSYCHIATRY: None NEUROLOGICAL: As above. Past medical history to include: ALLERGIES, hypothyroid, prostatitis, asthma Social history: . No smoking. Alcohol occasionally. Family history: Reviewed, noncontributory to presentation Physical examination: VITAL SIGNS: 97.4, 90, 17, 165/76, 96% on room air GENERAL: Average built, sitting up, comfortable. EYES: Pupils equal. Conjunctiva normal. HEENT: External appearance of nose and ears normal, oral cavity grossly normal. NECK: JVD not raised; masses not palpable. HEART: First and second heart sounds are normal; no edema. LUNGS: Respiratory rate normal; clear to auscultation. ABDOMEN: Soft, nontender, liver spleen not palpable, no masses palpable. PSYCH: Alert and oriented x3; mood and affect normal. MUSCULOSKELETAL:No Clubbing/cyanosis;muscles-grossly intact. OA NEUROLOGICAL: Mouth pulled to the left. Decreased sensation right face. Unable to close right eye. Against resistance. Upon looking up no creases and forehead on the right side, power and sensation grossly intact. LYMPHATICS: No lymph nodes palpable in the axilla and neck INVESTIGATIONS, reviewed in the clinical context: White count 7.5 hemoglobin 15.14 creatinine 1.03 Troponin I less than 0.012 LDL 198 TSH 0.2-4, free T4 2 0.39 EKG tracing personally reviewed by me-no sinus rhythm. Rate 85 Chest x-ray film personally reviewed by me-some hyperinflation CT brain without contrast: Unremarkable CT angiogram: Moderate to severe eccentric noncalcified plaque still suggest over 50%. Left CCA. No other significant stenosis. 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 IV acyclovir. Patient has declined MRI dated neurology was consulted. -Hyperlipidemia Patient unable to tolerate statins. To follow-up with her PCP. -Chronic kidney disease stage II. We will repeat BMP today. As patient had a dye test yesterday. Also renal ultrasound -Chronic ALLERGIES Singulair -Primary osteoarthritis multiple joints bilateral . Tylenol as needed. On Celebrex -GERD PPI -Chronic urinary stress incontinence -Mild persistent asthma Albuterol when necessary Neurology was consulted. Patient does not want MRI. Cannot tolerate statins. Ultrasound. Repeat BMP. Acyclovir. Steroids. Discussed with the patient has been. Facial exercises for Sepulveda's palsy discussed. Past Medical History Past Medical History: CVA/TIA, Hyperlipidemia History of Any Multi-Drug Resistant Organisms: None Reported Past Surgical History: Appendectomy, Cholecystectomy, Hysterectomy, Tonsillectomy Past Anesthesia/Blood Transfusion Reactions: No Reported Reaction Past Psychological History: No Psychological Hx Reported Smoking Status: Never smoker Past Alcohol Use History: Occasional Past Drug Use History: None Reported Medications and Allergies Home Medications Medication Instructions Recorded Confirmed Type Albuterol Sulfate [Ventolin HFA] 2 puff INHALATION RT-Q6H PRN 02/18/21 10/14/21 History Celecoxib [CeleBREX] 100 mg PO BID 02/18/21 10/14/21 History Cholecalciferol (Vitamin D3) 125 mcg PO DAILY 02/18/21 10/14/21 History [Vitamin D3 (125 MCG = 5,000 IU)] Levothyroxine Sodium [Synthroid] 100 mcg PO DAILY 02/18/21 10/14/21 History Montelukast [Singulair] 10 mg PO HS 02/18/21 10/14/21 History Cyanocobalamin [Vitamin B-12] 500 mcg PO DAILY 10/14/21 10/14/21 History Doxycycline Hyclate 100 mg PO BID 10/14/21 10/14/21 History Pyridoxine HCl (Vitamin B6) 100 mg PO DAILY 10/14/21 10/14/21 History [Vitamin B-6] Triamcinolone Acetonide [Nasacort] 1 spray EA NOSTRIL BID 10/14/21 10/14/21 History Allergies Allergy/AdvReac Type Severity Reaction Status Date / Time bee pollen Allergy Anaphylaxis Verified 10/14/21 17:35 ciprofloxacin [From Cipro] Allergy Dyspnea Verified 10/14/21 17:35 diclofenac [From Arthrotec] Allergy Unknown Verified 10/14/21 17:35 diphenhydramine Allergy Rapid Verified 10/14/21 17:35 [From Benadryl] Heart Rate ezetimibe [From Zetia] Allergy Dyspnea Verified 10/14/21 17:35 Iodinated Contrast Media Allergy Rash/Hives Verified 10/14/21 17:35 levofloxacin [From Levaquin] Allergy Rapid Verified 10/14/21 17:35 Heart Rate naproxen [From Aleve] Allergy Anaphylaxis Verified 10/14/21 17:35 niacin Allergy Anaphylaxis Verified 10/14/21 17:35 prednisone Allergy Rapid Verified 10/14/21 17:35 Heart Rate acetaminophen AdvReac Unknown Verified 10/14/21 17:35 [From Darvocet-N] atorvastatin [From Lipitor] AdvReac Nausea & Verified 10/14/21 17:35 Vomiting & Diarrhea cimetidine [From Tagamet] AdvReac Abdominal Verified 10/14/21 17:35 Pain codeine AdvReac Abdominal Verified 10/14/21 17:35 Pain esomeprazole [From Nexium] AdvReac Abdominal Verified 10/14/21 17:35 Pain misoprostol [From Arthrotec] AdvReac numbness, Verified 10/14/21 17:35 weakness omeprazole [From Prilosec] AdvReac felt Verified 10/14/21 17:35 strange, confusion pramipexole [From Mirapex] AdvReac Diarrhea, Verified 10/14/21 17:35 shakiness pravastatin AdvReac weakness, Verified 10/14/21 17:35 abdominal pain, numbness propoxyphene AdvReac Unknown Verified 10/14/21 17:35 [From Darvocet-N] simvastatin AdvReac Nausea & Verified 10/14/21 17:35 Vomiting & Diarrhea Physical Exam Vitals: Vital Signs Temp Pulse Pulse Resp BP BP Pulse Ox 10/15/21 08:00 97.4 F L 90 17 165/76 96 10/15/21 03:58 97.4 F L 82 17 146/70 94 L 10/15/21 02:00 18 10/14/21 23:27 98.0 F 90 18 178/84 96 10/14/21 20:00 98.6 F 80 17 170/74 97 10/14/21 18:20 98.4 F 94 16 189/84 97 10/14/21 17:40 86 18 190/82 97 10/14/21 17:12 76 18 98 10/14/21 17:00 79 18 154/80 96 10/14/21 15:55 98.2 F 81 18 173/75 100 10/14/21 15:40 98.1 F 78 18 173/89 100 10/14/21 15:25 98.2 F 80 16 176/71 99 10/14/21 15:10 97.9 F 76 18 166/78 100 10/14/21 14:55 98.0 F 81 20 103/76 99 10/14/21 14:40 98.1 F 83 18 102/67 99 10/14/21 14:23 97.3 F L 89 18 179/73 99 Intake and Output 10/14/21 10/15/21 10/15/21 22:59 06:59 14:59 Intake Total 240 Balance 240 Intake: Oral 240 Other: Voiding Method Toilet Toilet # Voids 1 Weight 69.853 kg Results CBC & Chem 7: 10/14/21 14:53 10/15/21 12:09 Labs: Abnormal Lab Results - Last 24 Hours (Table) 10/14/21 10/14/21 10/15/21 Range/Units 14:53 20:36 05:45 BUN 22 H (7-17) mg/dL Glucose 102 H (74-99) mg/dL POC Glucose (mg/dL) 179 H 149 H (70-110) mg/dL AST 39 H (14-36) U/L Total Protein 8.4 H (6.3-8.2) g/dL Thrombosis Risk Factor Assmnt - Choose All That Apply Any of the Below Risk Factors Present?: No Other Risk Factors: Yes Each Risk Factor Represents 2 Points: Age 61-74 years Other congenital or acquired thrombophilia - If yes, enter type in comment: No Thrombosis Risk Factor Assessment Total Risk Factor Score: 2 Thrombosis Risk Factor Assessment Level: Low Risk
[2021-10-15 15:52] LABS: Appearance,Urine Clear (Clear); Bilirubin,Urine Negative (Negative); Blood,Urine Trace (Negative); Color,Urine Light Yellow; Glucose,Urine (UA) Negative (Negative); Ketones,Urine Negative (Negative); Leukocyte Esterase,Urine Negative (Negative); Mucus,Urine Rare /hpf; Nitrite,Urine Negative (Negative); Protein,Urine Negative (Negative); RBC,Urine 1 /hpf (0-5); Specific Gravity,Urine 1.013 (1.001-1.035); Squamous Epithelial Cell,Urine 1 /hpf (0-4); Urobilinogen,Urine <2.0 mg/dL (<2.0); WBC,Urine 1 /hpf (0-5)
[2021-10-15 18:35] VITALS: BP 145/72; PULSE 85; TEMP 98.1
--- NOTE | 2021-10-15 19:13 | P.DS ---
Providers Date of admission: 10/14/21 16:39 Expected date of discharge: 10/15/21 Attending physician: Jeremy Barth Consults: 10/14/21 16:39 Consult Physician Routine Consulting Provider: Raj Mata Consult Reason/Comments: CVA versus Sepulveda's palsy Do you want consulting provider notified?: Yes Primary care physician: Daria Calle [place] Course: Chief Complaint: Facial weakness This is a pleasant 71-year-old patient who follows with Dr. Daria Calle. Chronic stable medical conditions include ALLERGIES, hypothyroid, osteoarthritis, asthma,. Currently was being treated for acute sinusitis. Was on doxycycline. Yesterday all of a sudden patient notice numbness on the right side of the face. Also consider better found in the mouth was being pulled to the left. Was unable to close her right eye. No fever no chills. No change in vision. No change in taste. No trouble swallowing. In the ER and there was concern about a central cause as opposed to Sepulveda's palsy. Hence patient is admitted with neurology consultation. Patient's at the bedside. No change in symptoms. MRI was ordered by neurology but patient did not want it because cannot tolerated in spite of sedatives Patient is repeat BMP was done today. Creatinine 0.87. No CAD. Because of elevated LDL baby aspirin being added. Review of systems: GEN.: None EYES: As above HEENT: None NECK: None RESPIRATORY: None CARDIOVASCULAR: None GASTROINTESTINAL: Reflux GENITOURINARY: Urinary incontinence MUSCULOSKELETAL: Joint pains LYMPHATICS: None HEMATOLOGICAL: None PSYCHIATRY: None NEUROLOGICAL: As above. Past medical history to include: ALLERGIES, hypothyroid, prostatitis, asthma Social history: . No smoking. Alcohol occasionally. Family history: Reviewed, noncontributory to presentation Physical examination: VITAL SIGNS: 97.4, 90, 17, 165/76, 96% on room air GENERAL: Average built, sitting up, comfortable. EYES: Pupils equal. Conjunctiva normal. HEENT: External appearance of nose and ears normal, oral cavity grossly normal. NECK: JVD not raised; masses not palpable. HEART: First and second heart sounds are normal; no edema. LUNGS: Respiratory rate normal; clear to auscultation. ABDOMEN: Soft, nontender, liver spleen not palpable, no masses palpable. PSYCH: Alert and oriented x3; mood and affect normal. MUSCULOSKELETAL:No Clubbing/cyanosis;muscles-grossly intact. OA NEUROLOGICAL: Mouth pulled to the left. Decreased sensation right face. Unable to close right eye. Against resistance. Upon looking up no creases and forehead on the right side, power and sensation grossly intact. LYMPHATICS: No lymph nodes palpable in the axilla and neck INVESTIGATIONS, reviewed in the clinical context: October 15: Creatinine 0.87 Renal ultrasound unremarkable UA: Unremarkable White count 7.5 hemoglobin 15.14 creatinine 1.03 Troponin I less than 0.012 LDL 198 TSH 0.2-4, free T4 2 0.39 EKG tracing personally reviewed by me-no sinus rhythm. Rate 85 Chest x-ray film personally reviewed by me-some hyperinflation CT brain without contrast: Unremarkable CT angiogram: Moderate to severe eccentric noncalcified plaque still suggest over 50%. Left CCA. No other significant stenosis. 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 IV acyclovir. Patient has declined MRI dated neurology was consulted. Discharged on acyclovir and prednisone. Facial exercises. -Hyperlipidemia Patient unable to tolerate statins. To follow-up with her PCP. -Patient does not have chronic kidney disease. Normal creatinine. Normal renal ultrasound. No protein in the urine. -Chronic ALLERGIES Singulair -Primary osteoarthritis multiple joints bilateral . Tylenol as needed. On Celebrex -GERD PPI -Chronic urinary stress incontinence -Mild persistent asthma Albuterol when necessary Disposition: Home Plan - Discharge Summary Discharge Rx Participant: Yes New Discharge Prescriptions: New valACYclovir HCL [Valtrex] 1,000 mg PO TID #21 tab Aspirin 81 mg PO DAILY #30 tab predniSONE 10 mg PO DAILY #30 tab Levothyroxine Sodium [Synthroid] 37.5 mcg PO DAILY #30 tab Continue Montelukast [Singulair] 10 mg PO HS Cholecalciferol (Vitamin D3) [Vitamin D3 (125 MCG = 5,000 IU)] 125 mcg PO DAILY Albuterol Sulfate [Ventolin HFA] 2 puff INHALATION RT-Q6H PRN PRN Reason: Shortness Of Breath Triamcinolone Acetonide [Nasacort] 1 spray EA NOSTRIL BID Cyanocobalamin [Vitamin B-12] 500 mcg PO DAILY Celecoxib [CeleBREX] 100 mg PO BID Pyridoxine HCl (Vitamin B6) [Vitamin B-6] 100 mg PO DAILY Discontinued Doxycycline Hyclate 100 mg PO BID Levothyroxine Sodium [Synthroid] 100 mcg PO DAILY Discharge Medication List Albuterol Sulfate [Ventolin HFA] 2 puff INHALATION RT-Q6H PRN 02/18/21 [History] Celecoxib [CeleBREX] 100 mg PO BID 02/18/21 [History] Cholecalciferol (Vitamin D3) [Vitamin D3 (125 MCG = 5,000 IU)] 125 mcg PO DAILY 02/18/21 [History] Montelukast [Singulair] 10 mg PO HS 02/18/21 [History] Cyanocobalamin [Vitamin B-12] 500 mcg PO DAILY 10/14/21 [History] Pyridoxine HCl (Vitamin B6) [Vitamin B-6] 100 mg PO DAILY 10/14/21 [History] Triamcinolone Acetonide [Nasacort] 1 spray EA NOSTRIL BID 10/14/21 [History] Aspirin 81 mg PO DAILY #30 tab 10/15/21 [Rx] Levothyroxine Sodium [Synthroid] 37.5 mcg PO DAILY #30 tab 10/15/21 [Rx] predniSONE 10 mg PO DAILY #30 tab 10/15/21 [Rx] valACYclovir HCL [Valtrex] 1,000 mg PO TID #21 tab 10/15/21 [Rx] Follow up Appointment(s)/Referral(s): Daria Calle MD [Primary Care Provider] - 1-2 days Patient Instructions/Handouts: Sepulveda Palsy (DC), Stroke (DC) Discharge Disposition: HOME SELF-CARE
[2021-10-17 14:03] LABS: Lyme IgG/IgM 0.06 Index
== END 2021-10-15 17:38 | disposition home or self-care (01) ==
LOC: EC 14:22 → INTOOBSV 16:39 → 3SCARD 16:39
PROVIDERS: ADMIT Hospitalist; ATTEND Hospitalist
DX: G51.0 Bell's palsy (principal); J01.90 Acute sinusitis, unspecified; J45.30 Mild persistent asthma, uncomplicated; I65.22 Occlusion and stenosis of left carotid artery; E03.9 Hypothyroidism, unspecified; E78.5 Hyperlipidemia, unspecified; M15.9 Polyosteoarthritis, unspecified; K21.9 Gastro-esophageal reflux disease without esophagitis; N39.3 Stress incontinence (female) (male); Z79.1 Long term (current) use of non-steroidal anti-inflammatories (NSAID); Z79.890 Hormone replacement therapy; Z79.899 Other long term (current) drug therapy; Z88.6 Allergy status to analgesic agent; Z88.1 Allergy status to other antibiotic agents; Z91.030 Bee allergy status; Z91.041 Radiographic dye allergy status; Z88.5 Allergy status to narcotic agent; Z88.8 Allergy status to other drugs, medicaments and biological substances; Z91.048 Other nonmedicinal substance allergy status; Z86.73 Personal history of transient ischemic attack (TIA), and cerebral infarction without residual deficits; Z90.49 Acquired absence of other specified parts of digestive tract; Z90.710 Acquired absence of both cervix and uterus; Z98.890 Other specified postprocedural states
CPT/HCPCS: 96376 ×3; 96361; 96374; 96375; 99285; 36415; 93005; 97165; 84439; 80061; 80053; 80048; 84443; 84484; 85025; 85610; 85730; 81001; 86618; 83036; 71045; 76770; 93880; 70496; 70450; 70498; G0378; J2930 ×2; Q9967